=== PATIENT | female | born 1980 | race Caucasian/White ===

== ENCOUNTER 2023-02-24 13:53 | Emergency (ER) | payer OTHER ==
[~2023-02-24] VITALS: Ht 172.7 cm; Wt 132.4 kg
[~2023-02-24 13:53] MED LIST: CIPRO500 MG PO; CITALOPRAM HBR20 MG PO; LOMOTIL TABLET1 EACH PO; TRIAMTERENE-HCTZ1 EA PO
[2023-02-24 14:00] VITALS: O2SAT 99
[2023-02-24] MEDS ORDERED: NAPROXEN 250 MG TAB PO STA (14:42)
[2023-02-24] MEDS ORDERED: TRAMADOL HCL 50 MG TAB PO ONE (14:45)
[2023-02-24] MEDS ORDERED: METHOCARBAMOL 500 MG TAB PO ONE (15:00)
[2023-02-24] MEDS ORDERED: ANAPROX DS550 MG PO (16:45)
== END 2023-02-24 17:02 | disposition home or self-care (01) ==
LOC: ER 14:19
DX: M25.561 Pain in right knee (principal); M17.11 Unilateral primary osteoarthritis, right knee; W22.09XA Striking against other stationary object, initial encounter; Y93.84 Activity, sleeping; Y92.89 Other specified places as the place of occurrence of the external cause
CPT/HCPCS: 99283